=== PATIENT | female | born 1965 | race Caucasian/White ===

== ENCOUNTER → 2016-10-17 | Outpatient (CLI) | payer OTHER | LOC: NM 08:30 → ECHO 11:00 | DX: R07.9 Chest pain, unspecified (principal); I51.7 Cardiomegaly | CPT/HCPCS: ECHO; 78452; 93017; 93306; A9502; J2785 ==

== ENCOUNTER → 2021-02-17 | Outpatient (CLI) | payer MEDICARE ==
[~2021-02-17] MED LIST: ASPIRIN81 MG PO; FUROSEMIDE20 MG PO; LEVAQUIN500 MG PO; LIDOCAINE PATCH TD; LISINOPRIL-HCT1 EAC1 PO; MELATONIN3 MG PO; METOPROLOL SUCC25 MG PO; MOBIC15 MG PO; NEURONTIN 400400 MG PO; NORCO 10-325 T1 EACH PO; PRAVASTATIN SOD40 MG PO; PROTONIX40 MG PO; RESTASIS 0.05%1 EACH EYEBOTH; TURMERIC PO; WELLBUTRIN XL300 MG PO; ZOLOFT50 MG PO
== END ==
LOC: KOH-I 15:48
DX: M54.5 Low back pain (principal); M47.816 Spondylosis without myelopathy or radiculopathy, lumbar region
CPT/HCPCS: 72110

== ENCOUNTER → 2021-07-13 | Outpatient (CLI) | payer MEDICARE, SELFPAY | LOC: HEART 5 08:30 | DX: R07.9 Chest pain, unspecified (principal); R06.02 Shortness of breath; I07.1 Rheumatic tricuspid insufficiency; I27.20 Pulmonary hypertension, unspecified | CPT/HCPCS: 93306 ==

== ENCOUNTER → 2021-09-02 | Outpatient (CLI) | payer MEDICARE | LOC: KOH-I 15:18 | DX: R05.9 Cough, unspecified (principal) | CPT/HCPCS: 71046 ==

== ENCOUNTER → 2021-09-05 | Outpatient (CLI) | payer MEDICARE | LOC: HEART 5 11:18 | DX: R06.02 Shortness of breath (principal); M87.059 Idiopathic aseptic necrosis of unspecified femur; R07.89 Other chest pain; I20.9 Angina pectoris, unspecified; Z45.09 Encounter for adjustment and management of other cardiac device | CPT/HCPCS: 94060; 94729 ==

== ENCOUNTER → 2021-09-12 | Outpatient (CLI) | payer MEDICARE | LOC: HEART 5 09-08 09:15 → NM 12:53 | DX: I20.9 Angina pectoris, unspecified (principal) | CPT/HCPCS: 78452; 93017; A9502; J2785 ==

== ENCOUNTER → 2021-10-17 | Outpatient (CLI) | payer MEDICARE ==
[~2021-10-17] MED LIST changes: +AMLODIPINE BESYL5 MG PO; +FOLIC ACID1 MG PO; +METHOTREXATE T2.5 MG PO; +VITAMIN D 40400 UNIT PO
[2021-10-17 11:01] LABS: HEMOGLOBIN 13.3 gm/dl (12.3-15.3); RED BLOOD COUNT 4.25 M/UL (4.00-5.10); WHITE BLOOD COUNT 6.7 K/UL (4.5-11.0)
[2021-10-17 11:30] LABS: BUN/CREATININE RATIO 23 (0-10)
== END ==
LOC: LAB 10:32
PROVIDERS: Internal Medicine Cardiovascular Disease
DX: Z01.812 Encounter for preprocedural laboratory examination (principal); I20.9 Angina pectoris, unspecified; I10 Essential (primary) hypertension; R94.39 Abnormal result of other cardiovascular function study; R06.02 Shortness of breath
CPT/HCPCS: 36415; 80048; 85025

== ENCOUNTER → 2021-10-18 | Outpatient (CLI) | payer MEDICARE | END | disposition home or self-care (01) | LOC: CATH 08:25 | DX: I25.119 Atherosclerotic heart disease of native coronary artery with unspecified angina pectoris (principal); I47.1 Supraventricular tachycardia; I10 Essential (primary) hypertension; I27.20 Pulmonary hypertension, unspecified; E78.5 Hyperlipidemia, unspecified; I49.3 Ventricular premature depolarization; E66.01 Morbid (severe) obesity due to excess calories; G47.33 Obstructive sleep apnea (adult) (pediatric); Z68.43 Body mass index [BMI] 50.0-59.9, adult; Z87.891 Personal history of nicotine dependence; Z99.89 Dependence on other enabling machines and devices; Z91.040 Latex allergy status; Z79.02 Long term (current) use of antithrombotics/antiplatelets; Z79.899 Other long term (current) drug therapy | CPT/HCPCS: 99152; 99153; C1769; C1894; J1644; J2250; J7030; Q9967 ==